=== PATIENT | male | born 1975 ===

== ENCOUNTER 2017-05-29 10:02 | Inpatient (IN) | payer OTHER ==
[~2017-05-29] VITALS: Ht 175.3 cm; Wt 74.4 kg
[2017-06-06] MEDS ORDERED: ZITHROMAX600 MG PO (16:49)
[2017-06-06] MEDS ORDERED: PREDNISONE20 MG PO (16:49)
[2017-06-06] MEDS ORDERED: BACTRIM DS TAB1 EACH PO ×2 (16:49)
== END 2017-06-06 17:09 | disposition home or self-care (01) | DRG 974 ==
LOC: ER 10:02 → SEC-K 16:42 → MEDJ 16:42 → SURH 06-02 13:29
PROC: 3E0F7GC Introduction of Other Therapeutic Substance into Respiratory Tract, Via Natural or Artificial Opening (ICD-10-PCS; principal; 2017-05-29)
PROC: 4A033R1 Measurement of Arterial Saturation, Peripheral, Percutaneous Approach (ICD-10-PCS; 2017-05-29)
PROC: BW24ZZZ Computerized Tomography (CT Scan) of Chest and Abdomen (ICD-10-PCS; 2017-05-29)
PROC: 8E0ZXY6 Isolation (ICD-10-PCS; 2017-06-02)
DX: B20 Human immunodeficiency virus [HIV] disease (principal); J18.0 Bronchopneumonia, unspecified organism; B37.0 Candidal stomatitis; R09.02 Hypoxemia